=== PATIENT | female | born 1955 | race Caucasian/White ===

== ENCOUNTER → 2024-02-09 09:26 | Outpatient (BNVA) | payer MEDICARE, SELFPAY | PROVIDERS: PCP Family Medicine; Referring Provider Family Medicine; Visit Provider Podiatrist | DX: L60.3 Nail dystrophy (principal); B35.1 Tinea unguium; M79.672 Pain in left foot | CPT/HCPCS: 11720; 99204 ==

== ENCOUNTER 2024-05-10 00:42 | Outpatient (CLI) | payer MEDICARE, SELFPAY ==
--- NOTE | 2024-05-10 | DI.RAD_ITS ---
Exam(s) XR LUMBAR SPINE COMPLETE EXAM: XR LUMBAR SPINE COMPLETE CLINICAL HISTORY: LOW BACK PAIN M54.50. TECHNIQUE: 2D digital imaging was performed of the lumbar spine. Five images were obtained. AP, la teral, right oblique, left oblique and L5-S1 spot views were obtained. COMPARISON: CR LUMBAR SPINE COMPLETE from 11/28/2014 DX DEXA BONE DENSITY WITH LISA from 12/08/2016 FINDINGS: BONES: There are stable compression fracture deformities of L2 and L3. Since the most recent examina tion of the lumbar spine from 2017, there is a moderate compression of the T12 vertebral body. There is also stable mild superior endplate compression of L5. There does appear to be new compression of the inferior endplate of L4 since 2017. The bones are osteopenic. There are degenerative changes of the facets at L4-5 and L5-S1. DISKS: Intervertebral disc spaces are maintained. ALIGNMENT: Lumbar spinal alignment is within normal limits. No spondylolysis or spondylolisthesis. SOFT TISSUE: Atherosclerotic calcification is present. IMPRESSION: 1. Multiple lower thoracic and lumbar compression deformities are present. T12 and L4 compression de formities have occurred since the most recent examination from 2016. There are age-indeterminate. M RI might be useful for further evaluation. 2. Mild degenerative changes seen in the lumbar spine. 3. Osteopenia. DATA REPOSITORY: RADIATION DOSE DELIVERED:
== END 2024-05-10 01:02 ==
LOC: DI 00:43
PROVIDERS: PCP Family Medicine; Visit Provider Family Medicine
DX: M51.25 Other intervertebral disc displacement, thoracolumbar region (principal)
CPT/HCPCS: 72110

== ENCOUNTER 2024-06-28 02:05 | Outpatient (CLI) | payer MEDICARE, SELFPAY ==
--- NOTE | 2024-06-28 09:20 | DI.MRI_ITS ---
Exam(s) MR LUMBAR SPINE WO EXAM: MR LUMBAR SPINE WO CLINICAL HISTORY: Compression fx of vertebral column, M48.50XG, subsequent encounter for fx. TECHNIQUE: Multiplanar multisequence MRI of the Lumbar spine was performed. COMPARISON: CR XR LUMBAR SPINE COMPLETE from 05/10/2024 FINDINGS: Bones: The last intervertebral disc space is designated the L5/S1 level for the numbering purpose of this ex amination. Stable moderate compression fracture T 10. Severe compression fracture T11 also appear stable. Mode rate compression fracture T12 shows high signal as well as some fluid in the vertebral body but appea rs stable in height from prior exam. The L1 vertebral bodies maintained in height. Stable mild comp ression of the superior endplate of L2. Stable moderate compression fracture of both superior and in ferior endplates of L3. Stable mild compression of the inferior endplate of L4. Cysts stable mild c ompression fracture of the endplates of L5. The some no significant retropulsion at any level. Alignment: Unremarkable. The marrow signal characteristics are unremarkable. Cord: The conus tip ends at the T12 level. It is of normal size and signal intensity. Bilateral nerve root sheath cysts at T11-12. T12-L1: No focal disc herniation is present. No central spinal canal stenosis.No neural foraminal st enosis. L1-2: No focal disc herniation is present. No central spinal canal stenosis.No neural foraminal sten osis. L2-3: No focal disc herniation is present. No central spinal canal stenosis.No neural foraminal solomon nosis. L3-4: No focal disc herniation is present. No central spinal canal stenosis.No neural foraminal solomon nosis. L4-5:Mild facet degenerative changes. No focal disc herniation is present. No central spinal canal stenosis.No neural foraminal stenosis. L5-S1: Mild facet degenerative changes. No focal disc herniation is present. No central spinal tulio l stenosis.No neural foraminal stenosis. The visualized SI joints and sacrum are unremarkable. Soft tissues: The paraspinal soft tissues are unremarkable. IMPRESSION: Multiple compression fractures appear stable in height when compared with prior plain films. The T12 vertebral body shows high signal and fluid consistent with acute or subacute fracture. No evidence of significant spinal stenosis or neuroforaminal narrowing. DATA REPOSITORY:
== END 2024-06-28 02:25 ==
LOC: DI 02:05
PROVIDERS: PCP Family Medicine; Visit Provider Family Medicine
DX: M48.54XD Collapsed vertebra, not elsewhere classified, thoracic region, subsequent encounter for fracture with routine healing (principal); X58.XXXD Exposure to other specified factors, subsequent encounter
CPT/HCPCS: 72148

== ENCOUNTER → 2025-05-17 00:47 | Outpatient (CLI) | payer MEDICARE, SELFPAY ==
--- NOTE | 2025-05-17 | DI.DEXA_ITS ---
Exam(s) XR DEXA BONE DENSITY W/WO LISA EXAM: XR DEXA BONE DENSITY W/WO LISA CLINICAL HISTORY: OSTEOPOROSIS, M81.0 TECHNIQUE: Routine DEXA evaluation of the lumbar spine, hip, or forearm. COMPARISON: DX DEXA BONE DENSITY WITH LISA from 12/08/2016 MR MR LUMBAR SPINE WO from 06/28/2024 Prior DEXA scan of 2016 also reviewed. FINDINGS: Performed on a Hologic unit. Lateral image: There are nonacute compression fractures of L3 and L5 as well as indentation of the superior endplate L2. There are also compression fractures of T11 and T12. The most recent has been of T12 which exhibited bone edema on 06/28/2024 MRI. Lumbar Spine total T-score: -3.6 which is osteoporosis range. However, exhibits some improvement when compared to the prior -4.4 reading on the DEXA scan of November 2016. Nevertheless, remains in the osteoporosis range. Hip total T-score:-3.0 which is osteoporosis range and his reading identical to what was obtained on the November 2016 study. Independent reading at the level of the femoral neck yields T-score of -3.3 which is osteoporosis range. The prior reading on the DEXA scan of November 2016 was -3.2 at the level of the femoral neck. Forearm total T-score: -4.1 which is osteoporosis range. Prior reading at this level on the study of November 2016 was -3.8. IMPRESSION: Bone mineral density measures in the osteoporosis range. Fracture risk remains high. Indeed, this patient has multiple compression fractures already documented in the lumbar spine and lower thoracic spine, the most recent being T12. Note: Any spine fracture indicates 5x risk for subsequent spine fracture and 2x risk for subsequent hip fracture. World Health Organization criteria for BMD interpretation classify patients: Normal...... T- Score at or above -1.0 Osteopenic... T- Score between -1.0 and -2.5 Osteoporosis... T-Score at or below -2.5
== END ==
PROVIDERS: PCP Family Medicine; Visit Provider Family Medicine
DX: M81.0 Age-related osteoporosis without current pathological fracture (principal)
CPT/HCPCS: 77080